=== PATIENT | female | born 1985 | race African-American/Black ===

== ENCOUNTER 2019-06-03 20:01 | Emergency (ER) | payer SELFPAY ==
[~2019-06-03] VITALS: Ht 170.2 cm; Wt 70.3 kg
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
[2019-06-03] MEDS ORDERED: LORAZEPAM 1 MG TABLET PO ONE (20:30)
[2019-06-03] MEDS ORDERED: LORAZEPAM 1 MG TABLET ONE (20:50)
--- NOTE | 2019-06-03 21:20 | NUR ---
PT BROUGHT BY RADIOLOGY
[2019-06-03] MEDS ORDERED: ACETAMINOPHEN 325 MG TABLET ONE (21:22)
[2019-06-03] MEDS ORDERED: ACETAMINOPHEN 325 MG TABLET PO ONE (21:30)
[2019-06-03 22:19] VITALS: BP 147/84
--- NOTE | 2019-06-03 22:19 | NUR ---
Patient given written and verbal discharge instructions. Patient verbalizes understanding of instructions. Patient is ambulatory with steady gait. Refuses offer of longterm placement. Patient given list of available shelters in surrounding area.
== END 2019-06-03 22:20 | disposition home or self-care (01) ==
LOC: ER 20:01
DX: S09.8XXA Other specified injuries of head, initial encounter (principal); J45.909 Unspecified asthma, uncomplicated; M79.641 Pain in right hand; Z59.0 Homelessness; Z72.89 Other problems related to lifestyle; Y08.89XA Assault by other specified means, initial encounter; Y93.89 Activity, other specified; Y92.89 Other specified places as the place of occurrence of the external cause; Y99.8 Other external cause status
CPT/HCPCS: 70450-TC; 73130-TC